=== PATIENT | male | born 1945 | race Hispanic/Latino ===

== ENCOUNTER → 2024-12-22 | Day surgery (SDC) | payer MEDICARE ==
[2024-12-16 09:10] LABS: BASOPHILS # (AUTO) 0.1 (0.0-0.1); BASOPHILS % 1.4 % (0.0-1.0); EOSINOPHILS # (AUTO) 0.4 (0.0-0.4); EOSINOPHILS % 5.3 % (0.0-6.0); HEMATOCRIT 42.5 % (38.2-49.6); LYMPHOCYTES # (AUTO) 1.4 (1.0-3.2); LYMPHOCYTES % 19.5 % (18.0-39.1); MEAN CORPUSCULAR HEMOGLOBIN 27.1 pg (28-32); MEAN CORPUSCULAR HGB CONC 30.6 g/dL (31-35); MEAN CORPUSCULAR VOLUME 88.5 fL (81-99); MONOCYTES # (AUTO) 0.6 (0.2-0.8); NEUTROPHILS # (AUTO) 4.4 (2.1-6.9); NEUTROPHILS % 63.1 % (38.7-80.0); PLATELET COUNT 139 x10e3/uL (140-360); RED CELL DISTRIBUTION WIDTH 15.1 % (11.7-14.4); WHITE BLOOD COUNT 7.03 x10e3/uL (4.8-10.8)
[~2024-12-22] MED LIST: AMIODARONE HCL200 MG PO; AMLODIPINE BES2.5 MG PO; ASPIRIN81 MG PO; COREG3.125 MG PO; CRESTOR40 MG PO; DIOVAN160 MG PO; ELIQUIS2.5 MG PO; EPHEDRINE SULFATE INJ 50 MG/ML VIAL ONE; FAMOTIDINE20 MG PO; FENOFIBRATE145 MG PO; FERROUS SULFAT325 MG PO; FOLIC ACID0.4 MG PO; FUROSEMIDE40 MG PO; GABAPENTIN100 MG PO; LIDOCAINE HCL 2% LOCAL INJ 5 ML SDV VIAL INJ ONE; METOCLOPRAMIDE HCL 10 MG/2ML VIAL ONE; ONDANSETRON HCL INJ 2MG/ML 2ML 2 MG/ML VIAL ONE; PRESERVISION A1 EAC3 PO; PROPOFOL IV EMULSION 10 MG/ML 20 ML VIAL ONE; PROPOFOL IV EMULSION 50 ML IV ONE; SPIRONOLACTONE25 MG PO; SUCCINYLCHOLINE CHLORIDE 20 MG/ML 10ML VIAL ONE; VIT D2 PO
[2024-12-22] MEDS: LACTATED RINGER'S 1,000 ML ONE (09:53)
[2024-12-22 12:00] VITALS: BP 151/92; PULSE 82; RESP 16; O2SAT 97
[2024-12-22 13:22] LABS: CDIFF AG QUIK CHEK NEGATIVE (NEGATIVE); CDIFF TOX QUIK CHEK NEGATIVE (NEGATIVE)
[2024-12-23 07:28] LABS: C-REACTIVE PROTEIN 9 mg/L (0-10)
[2024-12-25 08:10] LABS: ENDOMYSIAL ANTIBODIES, IGA Negative (Negative)
[2024-12-25 13:50] LABS: IMMUNOGLOBULIN A 448 mg/dL (61-437); TISSUE TRANSGLUTAMINASE IGA AB 2 U/mL (0-3)
== END | disposition home or self-care (01) ==
LOC: OR 08:30
PROVIDERS: ATTEND Internal Medicine Gastroenterology
DX: K29.50 Unspecified chronic gastritis without bleeding (principal); D12.2 Benign neoplasm of ascending colon; D12.3 Benign neoplasm of transverse colon; D12.4 Benign neoplasm of descending colon; D12.5 Benign neoplasm of sigmoid colon; K52.9 Noninfective gastroenteritis and colitis, unspecified; K29.80 Duodenitis without bleeding; K20.90 Esophagitis, unspecified without bleeding; K44.9 Diaphragmatic hernia without obstruction or gangrene; K21.9 Gastro-esophageal reflux disease without esophagitis; K57.30 Diverticulosis of large intestine without perforation or abscess without bleeding; K62.89 Other specified diseases of anus and rectum; K64.8 Other hemorrhoids; G47.33 Obstructive sleep apnea (adult) (pediatric); I10 Essential (primary) hypertension; E78.5 Hyperlipidemia, unspecified; I25.10 Atherosclerotic heart disease of native coronary artery without angina pectoris; I49.9 Cardiac arrhythmia, unspecified; Q78.0 Osteogenesis imperfecta; E03.9 Hypothyroidism, unspecified; Z01.810 Encounter for preprocedural cardiovascular examination; Z01.812 Encounter for preprocedural laboratory examination; Z79.02 Long term (current) use of antithrombotics/antiplatelets; Z79.899 Other long term (current) drug therapy; Z95.5 Presence of coronary angioplasty implant and graft; Z80.0 Family history of malignant neoplasm of digestive organs
CPT/HCPCS: 36415; 43239; 45380; 45385; 82784; 83516; 83630; 83993; 85025; 86140; 86256; 87045; 87177; 87324; 87328; 87449; 93005; J0330; J2003; J2405; J2470; J2704; J2765; J7121; 45378

== ENCOUNTER 2025-03-03 10:30 | Inpatient (IN) | payer MEDICARE ==
[~2025-03-03] VITALS: Ht 177.8 cm; Wt 74.8 kg
[~2025-03-03 10:30] MED LIST changes: -EPHEDRINE SULFATE INJ 50 MG/ML VIAL ONE; -LIDOCAINE HCL 2% LOCAL INJ 5 ML SDV VIAL INJ ONE; -METOCLOPRAMIDE HCL 10 MG/2ML VIAL ONE; -ONDANSETRON HCL INJ 2MG/ML 2ML 2 MG/ML VIAL ONE; -PROPOFOL IV EMULSION 10 MG/ML 20 ML VIAL ONE; -PROPOFOL IV EMULSION 50 ML IV ONE; -SUCCINYLCHOLINE CHLORIDE 20 MG/ML 10ML VIAL ONE
[2025-03-03 11:15] VITALS: TEMP 97.7
[2025-03-03 11:47] LABS: BASOPHILS % 0.8 % (0.0-1.0); EOSINOPHILS # (AUTO) 0.1 (0.0-0.4); EOSINOPHILS % 2.9 % (0.0-6.0); HEMATOCRIT 36.2 % (38.2-49.6); HEMOGLOBIN 11.3 g/dL (14.0-18.0); LYMPHOCYTES # (AUTO) 0.9 (1.0-3.2); LYMPHOCYTES % 19.1 % (18.0-39.1); MEAN CORPUSCULAR HEMOGLOBIN 27.2 pg (28-32); MEAN CORPUSCULAR HGB CONC 31.2 g/dL (31-35); MONOCYTES # (AUTO) 0.5 (0.2-0.8); MONOCYTES % 10.7 % (4.4-11.3); NEUTROPHILS # (AUTO) 3.2 (2.1-6.9); NEUTROPHILS % 66.3 % (38.7-80.0); PLATELET COUNT 164 x10e3/uL (140-360); RED BLOOD COUNT 4.16 x10e6/uL (4.3-5.7); RED CELL DISTRIBUTION WIDTH 16.8 % (11.7-14.4); WHITE BLOOD COUNT 4.87 x10e3/uL (4.8-10.8)
[2025-03-03] MEDS: SODIUM CHLORIDE 0.9% 1000ML 1,000 ML IV STA (11:47)
[2025-03-03] MEDS: ONDANSETRON HCL INJ 2MG/ML 2ML 2 MG/ML VIAL IV STA (11:48)
[2025-03-03 11:57] LABS: INR 1.49; PROTHROMBIN TIME 18.8 seconds (11.9-14.5)
[2025-03-03 11:58] LABS: PARTIAL THROMBOPLASTIN TIME 34.4 seconds (23.8-35.5)
[2025-03-03 12:07] LABS: ALBUMIN/GLOBULIN RATIO 0.9 (0.8-2.0); ALKALINE PHOSPHATASE 50 IU/L (40-150); ANION GAP 13.6 mmol/L (8-16); BILIRUBIN,TOTAL 2.7 mg/dL (0.2-1.2); BLOOD UREA NITROGEN 9 mg/dL (7-26); BUN/CREATININE RATIO 8 (6-25); CALCIUM 8.7 mg/dL (8.4-10.2); CARBON DIOXIDE 28 mmol/L (22-29); CHLORIDE 104 mmol/L (98-107); CREATINE KINASE 32 IU/L (30-200); CREATININE, SERUM 1.09 mg/dL (0.72-1.25); EST GLOMERULAR FILTRATION RATE 69 ML/MIN (>=60); GLUCOSE 107 mg/dL (74-118); LIPASE 7 U/L (8-78); MAGNESIUM 1.6 MG/DL (1.3-2.1); SODIUM 143 mmol/L (136-145); TOTAL PROTEIN 6.3 g/dL (6.5-8.1)
[2025-03-03 12:12] LABS: TROPONIN I 0.016 ng/mL (0-0.300)
[2025-03-03 12:15] LABS: ALANINE AMINOTRANSFERASE < 6 IU/L (0-55)
[2025-03-03 12:16] LABS: POTASSIUM 2.6 mmol/L (3.5-5.1)
[2025-03-03] MEDS ORDERED: IOPAMIDOL 370 MG/ML 100 ML INFUS..BTL INJ ONE (12:20)
[2025-03-03] MEDS ORDERED: SODIUM CHLORIDE 0.9% 100 ML ONE (12:20)
[2025-03-03] MEDS: POTASSIUM CHLORIDE 10MEQ/100ML 300 ML IV ONE (13:23)
[2025-03-03 14:07] LABS: BILIRUBIN,URINE SMALL (NEGATIVE); CLARITY,URINE SL CLOUDY (CLEAR); COLOR,URINE AMBER (YELLOW); GLUCOSE, URINE NEGATIVE (NEGATIVE); KETONES,URINE NEGATIVE (NEGATIVE); LEUKOCYTE ESTERASE ,URINE NEGATIVE (NEGATIVE); NITRITE,URINE NEGATIVE (NEGATIVE); PH,URINE 5.5 (5 - 7); PROTEIN,URINE DIPSTICK TRACE (NEGATIVE); URINE UROBILINOGEN 2 mg/dL (0.2 - 1)
[2025-03-03 14:29] LABS: AMORPHOUS SEDIMENT,URINE MODERATE; BACTERIA,URINE MODERATE /HPF; EPITHELIAL CELLS,URINE RARE /LPF; WBC,URINE (MAN) 0-5 /HPF (0-5)
[2025-03-03 15:45] VITALS: PULSE 60; RESP 21
[2025-03-03] MEDS ORDERED: ONDANSETRON HCL INJ 2MG/ML 2ML 2 MG/ML VIAL IV PRN (16:00)
[2025-03-03] MEDS ORDERED: ALBUTEROL/IPRATROPIUM 3 ML NEB NEB PRN (16:30)
[2025-03-03] MEDS ORDERED: ACETAMINOPHEN 325 MG TAB PO PRN (16:30)
[2025-03-03] MEDS ORDERED: SIMETHICONE 80 MG CHEW PO PRN (16:30)
[2025-03-03] MEDS ORDERED: DEXTROSE 50% SYRINGE 50 ML IV PRN (16:30)
[2025-03-03] MEDS ORDERED: LIDOCAINE 4% PATCH TP PRN (16:30)
[2025-03-03] MEDS ORDERED: BENZONATATE 100 MG CAP PO PRN (16:30)
[2025-03-03] MEDS ORDERED: DOCUSATE SODIUM 100 MG CAP PO PRN (16:30)
[2025-03-03] MEDS ORDERED: DIPHENHYDRAMINE HCL 25 MG CAP PO PRN (16:30)
[2025-03-03] MEDS ORDERED: HYDRALAZINE HCL 20 MG/ML VIAL IV PRN (16:30)
[2025-03-03] MEDS: SODIUM CHLORIDE 0.9% 1000ML 1,000 ML IV ONE (16:55)
[2025-03-03 17:41] VITALS: BP 167/64; PULSE 66; RESP 20; TEMP 97.6; O2SAT 95
[2025-03-03] MEDS: ENOXAPARIN SOD INJ 40 MG/0.4 ML SYR SC SCH (18:51)
[2025-03-03 20:00] VITALS: BP 153/81; PULSE 71; RESP 18; TEMP 97.6; O2SAT 96
[2025-03-03] MEDS: POTASSIUM CHLORIDE 10MEQ/100ML 100 ML IV ONE (20:51)
[2025-03-03 21:00] VITALS: BP 153/81; PULSE 71; RESP 18; TEMP 97.6; O2SAT 96
[2025-03-03] MEDS ORDERED: MELATONIN 5 MG TABLET PO PRN (21:00)
[2025-03-03] MEDS: POTASSIUM CHLORIDE 20 MEQ TAB CR PO ONE (22:39)
[2025-03-04] VITALS (7 sets, daily range): BP systolic 140–169; BP diastolic 59–73; PULSE 59–67; RESP 18; TEMP 97–98.4; O2SAT 92–100
[2025-03-04] MEDS: METOCLOPRAMIDE HCL 10 MG/2ML VIAL IV SCH (00:32)
[2025-03-04] MEDS: DICYCLOMINE HCL 20 MG TAB PO ONE (00:33)
[2025-03-04 01:15] LABS: TOTAL IRON BINDING CAPACITY 286 ug/dL (261-478); TRANSFERRIN 204 mg/dL (174-364)
[2025-03-04 02:02] LABS: % IRON SATURATION 40 % (15-50); IRON 114 ug/dL (65-175)
[2025-03-04 06:30] LABS: BASOPHILS % 0.7 % (0.0-1.0); EOSINOPHILS # (AUTO) 0.2 (0.0-0.4); EOSINOPHILS % 3.9 % (0.0-6.0); HEMATOCRIT 34.4 % (38.2-49.6); HEMOGLOBIN 10.8 g/dL (14.0-18.0); LYMPHOCYTES % 23.6 % (18.0-39.1); MEAN CORPUSCULAR HEMOGLOBIN 27.5 pg (28-32); MEAN CORPUSCULAR HGB CONC 31.4 g/dL (31-35); MEAN CORPUSCULAR VOLUME 87.5 fL (81-99); MONOCYTES # (AUTO) 0.5 (0.2-0.8); MONOCYTES % 12.7 % (4.4-11.3); NEUTROPHILS # (AUTO) 2.4 (2.1-6.9); NEUTROPHILS % 58.9 % (38.7-80.0); PLATELET COUNT 165 x10e3/uL (140-360); RED BLOOD COUNT 3.93 x10e6/uL (4.3-5.7); RED CELL DISTRIBUTION WIDTH 16.8 % (11.7-14.4); WHITE BLOOD COUNT 4.11 x10e3/uL (4.8-10.8)
[2025-03-04 07:01] LABS: ALBUMIN 2.7 g/dL (3.5-5.0); ALBUMIN/GLOBULIN RATIO 0.9 (0.8-2.0); ALKALINE PHOSPHATASE 47 IU/L (40-150); BILIRUBIN,TOTAL 2.2 mg/dL (0.2-1.2); BLOOD UREA NITROGEN 9 mg/dL (7-26); BUN/CREATININE RATIO 9 (6-25); CALCIUM 8.4 mg/dL (8.4-10.2); CARBON DIOXIDE 24 mmol/L (22-29); CHLORIDE 108 mmol/L (98-107); CREATININE, SERUM 0.95 mg/dL (0.72-1.25); EST GLOMERULAR FILTRATION RATE 82 ML/MIN (>=60); GLUCOSE 85 mg/dL (74-118); SODIUM 141 mmol/L (136-145); TOTAL PROTEIN 5.6 g/dL (6.5-8.1)
[2025-03-04 07:02] LABS: CHOL/HDL RATIO 2.6 (3.9-4.7)
[2025-03-04 07:09] LABS: ALANINE AMINOTRANSFERASE < 6 IU/L (0-55)
[2025-03-04 07:27] LABS: MAGNESIUM 1.6 MG/DL (1.3-2.1)
[2025-03-04] MEDS ORDERED: PANTOPRAZOLE SOD 40 MG TABEC PO SCH (07:30)
[2025-03-04 07:37] LABS: TROPONIN I 0.022 ng/mL (0-0.300)
[2025-03-04 07:50] LABS: THYROID STIMULATING HORMONE 0.017 uIU/mL (0.350-4.940)
[2025-03-04] MEDS ORDERED: LOSARTAN POTASSIUM 100 MG TAB PO SCH (09:00)
[2025-03-04] MEDS: FUROSEMIDE 40 MG TAB PO SCH (09:38)
[2025-03-04] MEDS: SUCRALFATE 1 GM TAB PO SCH (09:38)
[2025-03-04] MEDS: VALSARTAN 160 MG TAB PO SCH (09:38)
[2025-03-04] MEDS: DICYCLOMINE HCL 20 MG TAB PO SCH (09:38)
[2025-03-04] MEDS: SPIRONOLACTONE 25 MG TAB PO SCH (09:38)
[2025-03-04] MEDS: POTASSIUM CHLORIDE 20 MEQ TAB CR PO PRN (09:42)
[2025-03-04] MEDS ORDERED: REGADENOSON 0.4 MG/5 ML SYR IV ONE (15:38)
[2025-03-04] MEDS ORDERED: IOPAMIDOL 370 MG/ML 100 ML INFUS..BTL INJ ONE (16:43)
[2025-03-04] MEDS: GABAPENTIN 100 MG CAP PO SCH (21:12)
[2025-03-04] MEDS: ATORVASTATIN 40 MG TAB PO SCH (21:13)
[2025-03-04] MEDS: CARVEDILOL 3.125 MG TAB PO SCH (21:13)
[2025-03-05] VITALS (7 sets, daily range): BP systolic 120–194; BP diastolic 53–90; PULSE 55–75; RESP 18–20; TEMP 97.5–98.4; O2SAT 96–99
[2025-03-05 07:10] LABS: BASOPHILS % 0.6 % (0.0-1.0); EOSINOPHILS # (AUTO) 0.1 (0.0-0.4); EOSINOPHILS % 2.9 % (0.0-6.0); HEMATOCRIT 33.6 % (38.2-49.6); HEMOGLOBIN 10.4 g/dL (14.0-18.0); LYMPHOCYTES % 20.1 % (18.0-39.1); MEAN CORPUSCULAR HEMOGLOBIN 27.9 pg (28-32); MEAN CORPUSCULAR VOLUME 90.1 fL (81-99); MONOCYTES # (AUTO) 0.7 (0.2-0.8); MONOCYTES % 14.1 % (4.4-11.3); NEUTROPHILS % 61.7 % (38.7-80.0); PLATELET COUNT 141 x10e3/uL (140-360); RED BLOOD COUNT 3.73 x10e6/uL (4.3-5.7); RED CELL DISTRIBUTION WIDTH 17.2 % (11.7-14.4); WHITE BLOOD COUNT 4.83 x10e3/uL (4.8-10.8)
[2025-03-05 07:41] LABS: ANION GAP 13.4 mmol/L (8-16); CALCIUM 8.3 mg/dL (8.4-10.2); CREATININE, SERUM 1.06 mg/dL (0.72-1.25)
[2025-03-05 07:42] LABS: POTASSIUM 3.4 mmol/L (3.5-5.1); TROPONIN I 0.013 ng/mL (0-0.300)
[2025-03-05] MEDS ORDERED: VALSARTAN 160 MG TAB PO SCH (09:00)
[2025-03-05] MEDS: FENOFIBRATE 134 MG TAB PO SCH (09:00)
[2025-03-05 09:23] LABS: CDIFF AG QUIK CHEK NEGATIVE (NEGATIVE); CDIFF TOX QUIK CHEK NEGATIVE (NEGATIVE); WBC,FECAL (FECAL LACTOFERRIN) POSITIVE (NEGATIVE)
[2025-03-05] MEDS: ASPIRIN 81 MG CHEW TAB PO SCH (09:30)
[2025-03-05] MEDS: AMIODARONE HCL 200 MG TAB PO SCH (09:30)
[2025-03-05] MEDS: APIXABAN 2.5 MG TABLET PO SCH (09:31)
[2025-03-05] MEDS: CARVEDILOL 3.125 MG TAB PO SCH (20:58)
[2025-03-05] MEDS: ENOXAPARIN INJ 80 MG/0.8 ML SYR SC SCH (20:59)
[2025-03-06] VITALS (10 sets, daily range): BP systolic 112–145; BP diastolic 57–69; PULSE 56–78; RESP 17–18; TEMP 97–98.4; O2SAT 93–98
[2025-03-06] MEDS ORDERED: DIPHENOXYLATE/ATROPINE TAB PO STA (01:09)
[2025-03-06] MEDS: DIPHENOXYLATE/ATROPINE TAB PO ONE (06:11)
[2025-03-06] MEDS: DIPHENOXYLATE/ATROPINE TAB PO SCH (08:10)
[2025-03-06] MEDS: CHOLESTYRAMINE 4 GM PACKET PO SCH (16:28)
[2025-03-07] VITALS (12 sets, daily range): BP systolic 120–168; BP diastolic 51–68; PULSE 60–84; RESP 18–20; TEMP 97.8–98.5; O2SAT 95–100
[2025-03-07 07:44] LABS: BASOPHILS # (AUTO) 0.1 (0.0-0.1); EOSINOPHILS # (AUTO) 0.2 (0.0-0.4); EOSINOPHILS % 3.1 % (0.0-6.0); HEMATOCRIT 34.6 % (38.2-49.6); HEMOGLOBIN 10.8 g/dL (14.0-18.0); LYMPHOCYTES % 19.3 % (18.0-39.1); MEAN CORPUSCULAR HEMOGLOBIN 27.8 pg (28-32); MEAN CORPUSCULAR HGB CONC 31.2 g/dL (31-35); MEAN CORPUSCULAR VOLUME 88.9 fL (81-99); MONOCYTES # (AUTO) 0.7 (0.2-0.8); MONOCYTES % 13.7 % (4.4-11.3); NEUTROPHILS # (AUTO) 3.2 (2.1-6.9); NEUTROPHILS % 62.5 % (38.7-80.0); PLATELET COUNT 137 x10e3/uL (140-360); RED BLOOD COUNT 3.89 x10e6/uL (4.3-5.7); RED CELL DISTRIBUTION WIDTH 17.4 % (11.7-14.4); WHITE BLOOD COUNT 5.12 x10e3/uL (4.8-10.8)
[2025-03-07 08:23] LABS: ANION GAP 13.8 mmol/L (8-16); CALCIUM 8.6 mg/dL (8.4-10.2); CREATININE, SERUM 1.35 mg/dL (0.72-1.25); POTASSIUM 3.8 mmol/L (3.5-5.1)
[2025-03-07] MEDS: APIXABAN 5 MG TABLET PO SCH (21:27)
[2025-03-08] VITALS (11 sets, daily range): BP systolic 118–146; BP diastolic 58–83; PULSE 57–80; RESP 16–18; TEMP 97.8–98.2; O2SAT 93–100
[2025-03-08] MEDS ORDERED: FUROSEMIDE40 MG PO (16:12)
[2025-03-09] VITALS: BP 160/70; PULSE 74; RESP 18; TEMP 97.9; O2SAT 95
[2025-03-09 04:00] VITALS: BP 151/78; PULSE 73; RESP 18; TEMP 97.9; O2SAT 95
[2025-03-09 06:42] LABS: HEPATITIS B CORE IGM (P) Negative
[2025-03-09 06:43] LABS: HEPATITIS A ANTIBODY IGM (P) Negative; HEPATITIS B SURFACE AG (P) Negative; HEPATITIS C ANTIBODY Non Reactive
[2025-03-09 07:29] VITALS: PULSE 74; RESP 18; O2SAT 95
[2025-03-09 08:00] VITALS: BP 138/65; PULSE 74; RESP 17; TEMP 97.6; O2SAT 96
[2025-03-09 10:03] VITALS: BP 151/78; PULSE 74; RESP 17; TEMP 97.6; O2SAT 96
== END 2025-03-09 09:40 | disposition home or self-care (01) | DRG 391 ==
LOC: ER 11:09 → ERHOLD 16:07 → MED/SURG3 17:12
PROVIDERS: ADMIT Internal Medicine; ATTEND Internal Medicine
DX: K52.9 Noninfective gastroenteritis and colitis, unspecified (principal); E43 Unspecified severe protein-calorie malnutrition; I77.72 Dissection of iliac artery; I48.92 Unspecified atrial flutter; I70.92 Chronic total occlusion of artery of the extremities; I48.20 Chronic atrial fibrillation, unspecified; I50.32 Chronic diastolic (congestive) heart failure; N13.8 Other obstructive and reflux uropathy; K80.20 Calculus of gallbladder without cholecystitis without obstruction; E87.6 Hypokalemia; R00.1 Bradycardia, unspecified; K29.70 Gastritis, unspecified, without bleeding; I11.0 Hypertensive heart disease with heart failure; K57.30 Diverticulosis of large intestine without perforation or abscess without bleeding; I25.10 Atherosclerotic heart disease of native coronary artery without angina pectoris; Z95.5 Presence of coronary angioplasty implant and graft; I70.202 Unspecified atherosclerosis of native arteries of extremities, left leg; Z79.01 Long term (current) use of anticoagulants; Z68.23 Body mass index [BMI] 23.0-23.9, adult; Z71.3 Dietary counseling and surveillance; R63.4 Abnormal weight loss; K76.0 Fatty (change of) liver, not elsewhere classified; E78.5 Hyperlipidemia, unspecified; R16.0 Hepatomegaly, not elsewhere classified; R10.13 Epigastric pain; R10.31 Right lower quadrant pain; K74.60 Unspecified cirrhosis of liver; J43.9 Emphysema, unspecified; R94.6 Abnormal results of thyroid function studies; T46.2X5A Adverse effect of other antidysrhythmic drugs, initial encounter; R19.5 Other fecal abnormalities; Y92.009 Unspecified place in unspecified non-institutional (private) residence as the place of occurrence of the external cause; N40.1 Benign prostatic hyperplasia with lower urinary tract symptoms; J84.10 Pulmonary fibrosis, unspecified; I27.20 Pulmonary hypertension, unspecified; I08.1 Rheumatic disorders of both mitral and tricuspid valves; H54.8 Legal blindness, as defined in USA; H35.30 Unspecified macular degeneration; R26.81 Unsteadiness on feet
CPT/HCPCS: 36415; 71045; 74174; 76705; 78452; 80048; 80053; 80061; 81001; 82105; 82550; 82607; 82746; 82948; 83036; 83540; 83630; 83690; 83735; 83880; 83993; 84439; 84443; 84466; 84484; 85025; 85045; 85610; 85730; 87045; 87177; 87324; 87449; 93005; 93017; 93306; 94799; 99284; A9502; J1650; J2405; J2470; J2765; J3480; J7030; J7050; Q9967